=== PATIENT | female | born 1990 | race Caucasian/White ===

== ENCOUNTER 2018-09-11 15:01 | Inpatient (IN) | payer MEDICARE, MEDICAID ==
[2018-09-11] MEDS ORDERED: Nicotine Inhaler* 10 MG AMP INH PRN (15:37)
[2018-09-11 16:17] LABS: ABS Basophils 0.1 10^3/ul (0-0.2); ABS Eosinophils 0.3 10^3/ul (0-0.6); ABS Lymphocytes 4.1 10^3/ul (1.0-4.8); ABS Monocytes 0.7 10^3/ul (0-0.8); ABS Neutrophils 6.2 10^3/ul (1.5-7.7); ABS Nucleated RBC 0 10^3/ul; Eosinophil % 2.5 %; Hematocrit 41 % (35-47); Lymphocyte % 35.9 %; Mean Corpuscular HGB Conc 34 g/dl (31-36); Mean Corpuscular Hemoglobin 30 pg (27-31); Mean Corpuscular Volume 87 fL (80-97); Mean Platelet Volume 7.7 fL (7.4-10.4); Nucleated Red Blood Cells % 0; Platelet Count 332 10^3/ul (150-450); Red Cell Distribution Width 13 % (10.5-15); White Blood Count 11.4 10^3/ul (3.5-10.8)
--- NOTE | 2018-09-11 16:19 | ED ---
Psychiatric Complaint - HPI Summary HPI Summary: Patient is a 27-year-old transgender male to female who identifies as Simi presenting to the ED with depression and anxiety. She states she was sent here by her therapist's office and is here voluntarily. She denies any plan at this time, and has had several years of depression and anxiety. She continues to see a therapist and PCP. She states she is on estrogen and estradiol treatments currently. Denies any physical symptoms at this time. Denies any HI. She denies any recent stressors more than normal. Patient admits to cutting, most recently 1 week ago and denies any open wounds. - History Of Current Complaint Chief Complaint: EDMentalHealth Time Seen by Provider: 09/11/18 15:36 Hx Obtained From: Patient ?: No Onset/Duration: Sudden Onset Timing: Constant Severity Initially: Mild Severity Currently: Mild Character: Depressed, Anxious Aggravating Factor(s): Nothing Alleviating Factor(s): Nothing Associated Signs And Symptoms: Positive: Negative Has Suicidal: Reports: Thoughts - No plan - Allergies/Home Medications Allergies/Adverse Reactions: Allergies Allergy/AdvReac Type Severity Reaction Status Date / Time methylphenidate Allergy Unknown Verified 09/11/18 15:15 [From Ritalin] Reaction Details risperidone [From Risperdal] Allergy Twitching Verified 09/11/18 15:15 PMH/Surg Hx/FS Hx/Imm Hx Previously Healthy: Yes - Immunization History Hx Pertussis Vaccination: No Immunizations Up to Date: Yes Infectious Disease History: No Infectious Disease History: Denies: Traveled Outside the [place] in Last 30 Days - Social History Occupation: Unemployed Lives: Alone Alcohol Use: Occasionally Hx Substance Use: Yes Substance Use Type: Reports: Marijuana Substance Use Comment - Amount & Last Used: medical marijuana for PTSD Hx Tobacco Use: No Smoking Status (MU): Never Smoked Tobacco Review of Systems Constitutional: Negative Negative: Fever, Chills, Fatigue, Skin Diaphoresis Negative: Palpitations, Chest Pain Negative: Shortness Of Breath, Cough Genitourinary: Negative Positive: no symptoms reported, see HPI Negative: Arthralgia, Myalgia Negative: Rash, Bruising Neurological: Negative Positive: Anxious, Depressed All Other Systems Reviewed And Are Negative: Yes Physical Exam Triage Information Reviewed: Yes Vital Signs On Initial Exam: Initial Vitals Temp Pulse Resp BP Pulse Ox 97.6 F 88 16 147/90 98 09/11/18 15:06 09/11/18 15:06 09/11/18 15:06 09/11/18 15:06 09/11/18 15:06 Vital Signs Reviewed: Yes Appearance: Positive: Well-Appearing, Well-Nourished Skin: Positive: Warm, Skin Color Reflects Adequate Perfusion Head/Face: Positive: Normal Head/Face Inspection Eyes: Positive: EOMI, LORENZA, Conjunctiva Clear Neck: Positive: Supple, No Lymphadenopathy Respiratory/Lung Sounds: Positive: Clear to Auscultation Cardiovascular: Positive: Pulses are Symmetrical in both Upper and Lower Extremities Musculoskeletal: Positive: Normal, Strength/ROM Intact Neurological: Positive: Speech Normal Psychiatric: Positive: Anxious, Depressed AVPU Assessment: Alert Diagnostics - Vital Signs Vital Signs Temp Pulse Resp BP Pulse Ox 09/11/18 15:06 97.6 F 88 16 147/90 98 - Laboratory Lab Results: Lab Results 09/11/18 Range/Units 16:10 WBC 11.4 H (3.5-10.8) 10^3/ul RBC 4.70 (4.00-5.40) 10^6/ul Hgb 14.0 (12.0-16.0) g/dl Hct 41 (35-47) % MCV 87 (80-97) fL MCH 30 (27-31) pg MCHC 34 (31-36) g/dl RDW 13 (10.5-15) % Plt Count 332 (150-450) 10^3/ul MPV 7.7 (7.4-10.4) fL Neut % (Auto) 54.7 % Lymph % (Auto) 35.9 % Luna % (Auto) 6.2 % Eos % (Auto) 2.5 % Baso % (Auto) 0.7 % Absolute Neuts (auto) 6.2 (1.5-7.7) 10^3/ul Absolute Lymphs (auto) 4.1 (1.0-4.8) 10^3/ul Absolute Monos (auto) 0.7 (0-0.8) 10^3/ul Absolute Eos (auto) 0.3 (0-0.6) 10^3/ul Absolute Basos (auto) 0.1 (0-0.2) 10^3/ul Absolute Nucleated RBC 0 10^3/ul Nucleated RBC % 0 Result Diagrams: 09/11/18 16:10 Lab Statement: Any lab studies that have been ordered have been reviewed, and results considered in the medical decision making process. Course/Dx - Course Course Of Treatment: Patient is evaluated for depression and anxiety. She is currently taking estrogen and estradiol. Identifying as Simi. Friend is at bedside. She is here voluntarily, but does endorse suicidal ideation, however denies any plan. She has no previous attempts. She does have cuts to her thighs which appear new on old. No open wounds to be addressed. She is clear for mental health evaluation at this time. Patient signed out to SUSI Wang awaiting mental health evaluation. - Differential Dx/Clinical Impression Differential Diagnosis/HQI/PQRI: Positive: Depression, Suicidal Ideation, Other - Self-harm behavior Provider Diagnosis: Anxiety, Depression Discharge - Sign-Out/Discharge Documenting (check all that apply): Sign-Out Patient Signing out patient TO: Rangel Walker - Discharge Plan Condition: Good Referrals: No Primary Care Phys,NOPCP [Primary Care Provider] - - Billing Disposition and Condition Condition: GOOD
[2018-09-11 16:27] LABS: Urine Appearance Clear; Urine Bilirubin Negative (Negative); Urine Blood Negative (Negative); Urine Color Yellow; Urine Glucose Negative (Negative); Urine Ketones Negative (Negative); Urine Nitrite Negative (Negative); Urine Protein Negative (Negative); Urine Urobilinogen Negative (Negative)
[2018-09-11 16:37] LABS: ALT 67 U/L (7-52); AST 45 U/L (13-39); Albumin 4.2 g/dL (3.2-5.2); Albumin/Globulin Ratio 1.2 (1-3); Alkaline Phosphatase 45 U/L (34-104); Anion Gap 5 mmol/L (2-11); BUN/Creatinine Ratio 12.5 (8-20); Blood Urea Nitrogen 10 mg/dL (6-24); CO2 Carbon Dioxide 28 mmol/L (22-32); Calcium 9.4 mg/dL (8.6-10.3); Chloride 106 mmol/L (101-111); EGFR African American 105.8 (>60); EGFR Non-African American 87.4 (>60); Globulin 3.5 g/dL (2-4); Glucose 127 mg/dL (70-100); Sodium 139 mmol/L (135-145); Total Protein 7.7 g/dL (6.4-8.9)
[2018-09-11 16:42] LABS: Barbiturates Urine Screen None Detected (None Detect); Benzodiazepine Urine Screen None Detected (None Detect); Urine Cannabinoids Screen Presumptive Positive (None Detect)
[2018-09-11 16:55] LABS: Acetaminophen < 15 mcg/mL; Alcohol < 10 mg/dL (<10); Salicylate < 2.50 mg/dL (<30)
[2018-09-11 17:10] LABS: TSH (Thyroid Stimulating Horm) 3.37 mcIU/mL (0.34-5.60)
[2018-09-11] MEDS ORDERED: Al Hydrox/Mg Hydrox/Simet LIQ* 30 ML UDC PO PRN (20:10)
[2018-09-11] MEDS ORDERED: Acetaminophen TAB* 325 MG PO PRN (20:10)
[2018-09-11] MEDS: Prazosin CAP* 1 MG PO SCH (22:21)
[2018-09-11] MEDS: CMCS:Estradiol TAB(NF) 1 MG TAB PO SCH (22:21)
[2018-09-11] MEDS: Spironolactone TAB* 25 MG PO SCH (22:22)
[2018-09-12 07:03] LABS: HDL Cholesterol 42.1 mg/dL
[2018-09-12] MEDS: Vitamin THERAPEUTIC TAB PO SCH (08:37)
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
[2018-09-12] MEDS: Lurasidone(*) 40 MG TAB PO SCH (17:58)
[2018-09-12] MEDS: Prazosin CAP* 1 MG PO SCH (21:07)
[2018-09-12] MEDS: Spironolactone TAB* 25 MG PO SCH (21:07)
[2018-09-12] MEDS: CMCS:Estradiol TAB(NF) 1 MG TAB PO SCH (21:08)
[2018-09-12] MEDS: hydrOXYzine HCL TAB* 25 MG PO PRN (21:14)
[2018-09-13] MEDS: Vitamin THERAPEUTIC TAB PO SCH (11:41)
--- NOTE | 2018-09-13 13:32 | PN ---
Subjective - Subjective Date of Service: 09/13/18 Service Type: [id number] Hosp care 25 min moderate complexity Subjective: SUBJECTIVE: Nursing Report: Patient was visible on unit, no chemical restraints or PRNs. Slept overnight without incident. Attending group. CC: "I want to leave right now Patient was seen and evaluated by television writer today in her room. The patient reported that she would like to leave and said no one can talk to anyone she knows. She later changed her mind and said that collateral information could be provided from her partner. She plans to sign of release of information. She reported having adequate appetite but slept well overnight. The patient reports attending and participating in day groups. Per nursing no behavioral issues or overnight events reported. Patient is tolerating medications without side effects. She denied suicidal ideation, intent or plan. She denied suicidal plan or intent. She denied homicidal ideation intent or plan. She denied auditory and or visual hallucinations. She is looking forward to her engagement green party Monday. Objective - Appearance Appearance: Obese Dysmorphic Features: No Hygiene: Dirty Grooming: Disheveled - Behavior Psychomotor Activities: Normal Exhibits Abnormal Movement: No - Attitude and Relatedness Attitude and Relatedness: Irritable Eye Contact: Fair - Speech Quality: Unpressured Latencies: Short Quantity: Terse - Mood Patient's Decription of Mood: "Fine" - Affect Observed Affect: Non-labile Affect Consistent with: Euthymia - Thought Process Patient's Thought Process: Goal Directed Thought Content: No Passive Wish, No Suicidal Planning, No Homicidal Ideation, No Paranoid Ideation - Sensorium Experiencing Hallucinations: No, Sensorium is Clear Type of Hallucinations: Visual: No, Auditory: No, Command: No - Level of Consciousness Level of Consciousness: Alert Orientation: Yes Intact, Yes Orientated to Time, Yes Orientated to Place, Yes Orientated to Person - Impulse Control Impulse Control: Tenuous - Insight and Judgement Insight and Judgement: Fair - Group Participation Particating in Group Activities: Yes - Medication Management Medication Management Adherence: Yes Plan - Plan Treatment Plan: Name: MATTHEW FOSTER Birthdate: 1990 [id number] #The patient requires inpatient admission at this time to assure safety, receive treatment and work toward stabilization. #Continue Latuda 40mg po qpm with food #Continue Prazosin 1mg po qpm. #Continue Hydroxyzine 25mg Q6H PRN for anxiety. #Obtain collateral information from partner once release is signed. The risks, benefits, and alternative treatment options were discussed as well as the risks of refusing treatment. Treatment associated risks discussed included metabolic changes, SS, NMS, and the risk of EPS discussed. Despite these risks she made the choice for her current type of treatment. Goals to include decreasing/ eradicating suicidal ideation. Continued Medication Management: Continue Outpt Medication Medications: Current Medications Acetaminophen (Tylenol Tab*) 650 mg PO Q4H PRN PRN Reason: PAIN or TEMP > 101 F Last Admin: 09/12/18 10:50 Dose: 650 mg Al Hydrox/Mg Hydrox/Simethicone (Maalox Plus*) 30 ml PO Q4H PRN PRN Reason: INDIGESTION Estradiol (Estradiol Tab(Nf)) 4 mg PO BEDTIME [facility] Last Admin: 09/12/18 21:08 Dose: 4 mg Hydroxyzine HCl (Atarax Tab*) 25 mg PO Q6H PRN PRN Reason: ANXIETY Last Admin: 09/12/18 21:14 Dose: 25 mg Lurasidone HCl (Latuda) 40 mg PO QPM [facility] Last Admin: 09/12/18 17:58 Dose: 40 mg Multivitamins (Theragran Tab*) 1 tab PO DAILY [facility] Last Admin: 09/13/18 11:41 Dose: Not Given Nicotine (Nicotine Inhaler*) 10 mg INH Q2H PRN PRN Reason: CRAVING Prazosin HCl (Minipress Cap*) 1 mg PO BEDTIME [facility] Last Admin: 09/12/18 21:07 Dose: 1 mg Spironolactone (Aldactone Tab*) 200 mg PO BEDTIME [facility] Last Admin: 09/12/18 21:07 Dose: 200 mg - Discharge Plan Discharge Plan: Inpatient Hospitalization Outpatient Program: Private Clinician(s)
[2018-09-13] MEDS: Lurasidone(*) 40 MG TAB PO SCH (17:42)
[2018-09-13] MEDS: CMCS:Estradiol TAB(NF) 1 MG TAB PO SCH (21:14)
[2018-09-13] MEDS: hydrOXYzine HCL TAB* 25 MG PO PRN (21:15)
[2018-09-13] MEDS: Spironolactone TAB* 25 MG PO SCH (21:16)
[2018-09-13] MEDS: Prazosin CAP* 1 MG PO SCH (21:16)
[2018-09-14] MEDS: Vitamin THERAPEUTIC TAB PO SCH (08:48)
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
[2018-09-14 12:26] VITALS: BP 127/74
== END 2018-09-14 11:30 | disposition home or self-care (01) | DRG 885 ==
LOC: EDSEX → ED 15:01 → BSU 19:00
PROVIDERS: ADMIT Psychiatry & Neurology Psychiatry; ATTEND Psychiatry & Neurology Psychiatry
DX: F31.9 Bipolar disorder, unspecified (principal); R45.851 Suicidal ideations; Z68.42 Body mass index [BMI] 45.0-49.9, adult; E66.9 Obesity, unspecified; F43.10 Post-traumatic stress disorder, unspecified; F12.90 Cannabis use, unspecified, uncomplicated; F41.1 Generalized anxiety disorder; F60.3 Borderline personality disorder; Z87.890 Personal history of sex reassignment; Z88.8 Allergy status to other drugs, medicaments and biological substances; Z56.0 Unemployment, unspecified; Z72.89 Other problems related to lifestyle; Z91.410 Personal history of adult physical and sexual abuse; Z81.8 Family history of other mental and behavioral disorders
CPT/HCPCS: 36415; 80053; 80061; 80307; 80320; 80329; 81003; 83036; 84443; 85025; 99222; 99232; 99238; 99285; A9270-GY; G0480